=== PATIENT | male | born 1995 | race Caucasian/White ===

== ENCOUNTER 2022-02-14 14:20 | Emergency (ER) | payer BC, OTHER ==
[2022-02-14 14:41] VITALS: BP 117/70; PULSE 82; TEMP 98; BMI 29.2
[2022-02-14] MEDS ORDERED: SERTRALINE HCL 25 MG TABLET (FP) PO ONE (15:33)
[2022-02-14] MEDS ORDERED: clonazePAM 0.5 MG TABLET PO ONE (15:33)
[2022-02-14] MEDS ORDERED: SERTRALINE HCL 50 MG TABLET (FP) ONE (15:52)
== END 2022-02-14 16:59 | disposition home or self-care (01) ==
LOC: JER 14:20
DX: F41.9 Anxiety disorder, unspecified (principal)
CPT/HCPCS: 93005; 93010; 99283-25

== ENCOUNTER 2022-05-05 14:33 | Emergency (ER) | payer OTHER ==
[2022-05-05 14:55] VITALS: BP 118/82; PULSE 73; RESP 17; TEMP 98.6; BMI 27.8
[2022-05-05 16:38] LABS: BASO % 0.4 % (0-2.0); EOS % 1.3 % (0-4.5); HEMATOCRIT 43.1 % (35.4-49); HEMOGLOBIN 14.9 GM/dL (11.7-16.9); LYMPH % 15.1 % (8-40); MCH 33.5 pg (25.7-33.7); MCHC 34.7 g/dl (32.0-35.9); MEAN CELL VOLUME 96.6 fl (80-96); MEAN PLT VOLUME 10.6 fl (7.5-11.1); MONO % 10.1 % (3.8-10.2); NEUT % 73.1 % (42.8-82.8); PLATELET COUNT 129 10^3/uL (134-434); RBC 4.46 M/mm3 (4.00-5.60); RDW 12.7 % (11.9-15.9); WHITE BLOOD COUNT 4.2 K/mm3 (4.0-10.0)
[2022-05-05 17:02] LABS: CALCIUM 9.5 mg/dL (8.5-10.1)
[2022-05-05 17:03] LABS: ALBUMIN 4.2 g/dl (3.4-5.0); BLOOD UREA NITROGEN 12.4 mg/dL (7-18)
[2022-05-05 17:06] LABS: CREATININE 1.1 mg/dL (0.55-1.3)
[2022-05-05 17:07] LABS: BILIRUBIN,TOTAL 0.4 mg/dL (0.2-1); TOT PROT 7.2 g/dl (6.4-8.2)
== END 2022-05-05 17:55 | disposition home or self-care (01) ==
LOC: JER 14:33
DX: R21 Rash and other nonspecific skin eruption (principal)
CPT/HCPCS: 36415; 80053; 85025; 87040; 99283-25

== ENCOUNTER 2022-05-10 15:01 | Emergency (ER) | payer OTHER ==
[2022-05-10 15:06] VITALS: BP 116/71; PULSE 82; RESP 18; TEMP 97.8; BMI 27.8
[2022-05-10 16:33] LABS: URINE APPEARANCE CLEAR; URINE BILIRUBIN NEGATIVE (NEGATIVE); URINE COLOR YELLOW; URINE GLUCOSE (UA) NEGATIVE (NEGATIVE); URINE KETONE NEGATIVE (NEGATIVE); URINE LEUK ESTERASE NEGATIVE (NEGATIVE); URINE NITRITE NEGATIVE (NEGATIVE); URINE PROTEIN NEGATIVE (NEGATIVE); URINE UROBILINOGEN 0.2 mg/dL (0.2-1.0)
[2022-05-10] MEDS ORDERED: KETOROLAC TROMETHAMINE 30 MG/1 ML VIAL IM ONE (17:07)
[2022-05-10] MEDS ORDERED: KETOROLAC TROMETHAMINE 30 MG/1 ML VIAL ONE (17:09)
== END 2022-05-10 20:18 | disposition home or self-care (01) ==
LOC: JER 15:01
PROC: 3E0233Z Introduction of Anti-inflammatory into Muscle, Percutaneous Approach (ICD-10-PCS; principal; 2022-05-10)
DX: N50.9 Disorder of male genital organs, unspecified (principal); N50.82 Scrotal pain
CPT/HCPCS: 36415; 76870-TC; 81003; 86694; 86695; 86696; 87077; 87086; 87255; 87491; 87591; 99284-25

== ENCOUNTER 2022-05-14 15:24 | Emergency (ER) | payer OTHER ==
[2022-05-14 15:37] VITALS: BP 105/53; PULSE 63; RESP 18; TEMP 97.7; BMI 27.8
== END 2022-05-14 16:54 | disposition home or self-care (01) ==
LOC: JERFT 15:24 → JER 15:24 → JERFT 16:54
DX: B35.6 Tinea cruris (principal)
CPT/HCPCS: 99283-25

== ENCOUNTER 2022-07-28 21:23 | Emergency (ER) | payer OTHER ==
[2022-07-28 21:28] VITALS: BP 122/66; PULSE 77; RESP 18; TEMP 97.7; BMI 27.8
[2022-07-28 23:05] LABS: HEMATOCRIT 44.1 % (35.4-49); HEMOGLOBIN 15.4 GM/dL (11.7-16.9); LYMPH % 25.1 % (8-40); MCH 34.7 pg (25.7-33.7); MCHC 34.9 g/dl (32.0-35.9); MEAN CELL VOLUME 99.4 fl (80-96); MEAN PLT VOLUME 9.9 fl (7.5-11.1); MONO % 6.6 % (3.8-10.2); NEUT % 65.3 % (42.8-82.8); PLATELET COUNT 170 10^3/uL (134-434); RBC 4.44 M/mm3 (4.00-5.60); RDW 13.1 % (11.9-15.9)
[2022-07-28 23:12] LABS: INR 1.09 (0.83-1.09); PROTHROMBIN TIME (PATIENT) 12.5 SEC (9.7-13.0)
[2022-07-28 23:15] LABS: CHLORIDE 107 mmol/L (98-107); SODIUM 140 mmol/L (136-145)
[2022-07-28 23:17] LABS: CALCIUM 9.2 mg/dL (8.5-10.1)
[2022-07-28 23:18] LABS: ALBUMIN 4.1 g/dl (3.4-5.0); ANION GAP 6 MMOL/L (8-16); BLOOD UREA NITROGEN 15.4 mg/dL (7-18); CO2 28 mmol/L (21-32); GLUCOSE,RANDOM 97 mg/dL (74-106); MAGNESIUM 1.9 mg/dL (1.8-2.4)
[2022-07-28 23:21] LABS: CREATININE 1.2 mg/dL (0.55-1.3); SGOT/AST 16 U/L (15-37); SGPT/ALT 20 U/L (13-61)
[2022-07-28 23:22] LABS: BILIRUBIN,TOTAL 0.2 mg/dL (0.2-1)
[2022-07-28 23:24] LABS: ALK PHOS 44 U/L (45-117)
[2022-07-28 23:54] LABS: ERYTHROCYTE SEDIMENTATION RATE 2 mm/hr (0-10)
== END 2022-07-28 23:30 | disposition home or self-care (01) ==
LOC: JERFT 21:23
DX: M25.50 Pain in unspecified joint (principal)
CPT/HCPCS: 36415; 80053; 83735; 84443; 85025; 85610; 85651; 86038; 86140; 86618; 99283-25

== ENCOUNTER 2022-09-01 04:10 | Day surgery (SDC) | payer OTHER ==
[2022-08-27 14:12] VITALS: BMI 27.8
[2022-09-01 08:08] VITALS: RESP 18
[2022-09-01 11:37] VITALS: BP 122/71; PULSE 66; TEMP 98.2
== END 2022-09-01 11:35 | disposition home or self-care (01) ==
LOC: JASU-SURG 04:10
PROVIDERS: ATTEND Urology
PROC: 0TF4XZZ Fragmentation in Left Kidney Pelvis, External Approach (ICD-10-PCS; principal; 2022-09-01 10:00)
DX: N20.0 Calculus of kidney (principal)